=== PATIENT | male | born 1950 | race Caucasian/White ===

== ENCOUNTER 2020-06-22 12:33 | Observation (INO) | payer OTHER, BC ==
--- OUTSIDE RECORDS SUMMARY | 2020-06-22 12:35 | XMS REPORT | Summary of Care ---
:1950 Author Organization [facility] Address [address] [place] [address] Care Team Providers Name Role Phone Malcolm Ignacio MD Primary Care Provider Reason for Visit Reason Comments Refill Request Encounter Details Date Type Department Care Team Description 04/11/2020 Refill [facility] Family Medicine Malcolm Pimentel MD Refill Request - [address] [place] [address] [place] [address] [phone] Allergies No Known Allergiesdocumented as of this encounter (statuses as of 04/11/2020) Medications Medication Sig Dispensed Refills Start Date End Date Status blood sugar Use as directed 50 Strip 3 02/09/2017 A ctive diagnostic (ACCU-CHEK for once a day and KRISS) strip prn blood glucose monitoring for ICD code of E11.9 rosuvastatin 10 mg Take 1 tablet by 90 tablet 1 10/04/2019 Active tabletIndications: mouth at bedtime. Type 2 diabetes mellitus without complication, without long-term current use of insulin PARoxetine 20 mg Take 1 tablet by 90 tablet 0 01/23/2020 Active tabletIndications: mouth daily. Anxiety telmisartan 80 mg Take 1 tablet by 90 tablet 1 02/06/2020 Active tabletIndications: mouth daily. Essential hypertension SITagliptin 100 mg Take 1 tablet by 90 tablet 1 02/06/2020 Active tabletIndications: mouth daily. Type 2 diabetes mellitus without complication, without long-term current use of insulin, Polydipsia METFORMIN 1,000 mg TAKE 1 TABLET BY 180 tablet 0 04/04/2020 Active tabletIndications: MOUTH 2 TIMES Uncontrolled type 2 DAILY WITH MEALS. diabetes mellitus with hyperglycemia documented as of this encounter (statuses as of 04/11/2020) Active Problems Problem Noted Date Anxiety 09/26/2015 Essential hypertension 09/26/2015 Type 2 diabetes mellitus with microalbuminuria, withou t long-term current 09/26/2015 use of insulin documented as of this encounter (statuses as of 04/11/2020) Immunizations Name Administration Dates Next Due Influenza High Dose 02/22/2019 TDAP 01/05/2017 documented as of this encounter Social History Tobacco Use Types Packs/Day Years Used Date Never Smoker Smokeless Tobacco: Never Used Alcohol Use Drinks/Week oz/Week Comments Yes occasional Sex Assigned at Date Recorded Not on file documented as of this encounter Last Filed Vital Signs Not on filedocumented in this encounter Miscellaneous Notes Telephone Encounter - Reena Santoyo - 04/11/2020 4:44 PM CSTPARoxetine 20 mg tablet Patient called to request refill before leaving out of town. Please advise documented in this encounter Plan of Treatment Health Maintenance Due Date Last Done Comments HEPATITIS C (HCV) SCREEN 1950 Depression Screening 1962 COLON CANCER SCREENING FIT DNA EVERY 2001 3 YEARS COLON CANCER SCREENING SIGMOIDOSCOPY 2001 EVERY 5 YEARS COLONOSCOPY 2001 Zoster Recombinant Vaccine (SHINGRIX) 2001 (1 of 2) Medicare Wellness Visit 2016 PNEUMOCOCCAL VACCINES 65+ (1 of 1 - 2016 PPSV23) HgA1C 03/11/2019 09/09/2018, 01/06/2017 EYE EXAM 09/01/2019 08/31/2018 LDL-C 09/10/2019 09/09/2018, 01/06/2017 CREATININE (SERUM) 11/05/2019 11/04/2018, 09/09/2018, 01/06/2017 FOOT EXAM 11/05/2019 11/04/2018, 11/04/2018, 11/04/2018 URINE MICROALBUMIN 11/05/2019 11/04/2018 COLON CANCER SCREENING ANNUAL 11/12/2019 11/11/2018 FIT/FOBT Colorectal Cancer Screening 11/12/2019 INFLUENZA VACCINE (#1) 2020 02/22/2019 DTaP,Tdap,and Td Vaccines (2 - Td) 01/05/2027 01/05/2017 documented as of this encounter Results Not on filedocumented in this encounter Visit Diagnoses Diagnosis Anxiety Anxiety state, unspecified documented in this encounter Insurance Payer Benefit Plan Subscriber ID Effective Phone Address Typ e / Group Dates [facility] [id number] 2014-Enma [phone] [address] PPO/POS - OUT OF 87 [id number] [place] [address] MEDICARE MEDICARE PART [id number] 2016-Pres [phone] [address] X Medicare A ent 82 [id number] [place] [id number] documented as of this encounter
--- OUTSIDE RECORDS SUMMARY | 2020-06-22 12:35 | XMS REPORT | Summary of Care ---
:1950 Author Organization [facility] Address [address] [place] [address] Care Team Providers Name Role Phone Malcolm Ignacio MD Primary Care Provider Reason for Visit Reason Comments Refill Request Encounter Details Date Type Department Care Team Description 04/12/2020 Telephone [facility] Family Kailey Ignacio MD Refill Request [facility] - [address] [place] [address] [place] [address] [phone] Allergies No Known Allergiesdocumented as of this encounter (statuses as of 04/12/2020) Medications Medication Sig Dispensed Refills Start End Date Status Date blood sugar Use as directed 50 Strip 3 Ac tive diagnostic for once a day 7 (ACCU-CHEK KRISS) and prn blood strip glucose monitoring for ICD code of E11.9 rosuvastatin 10 mg Take 1 tablet 90 tablet 1 Active tabletIndications: by mouth at 0 Type 2 diabetes bedtime. mellitus without complication, without long-term current use of insulin telmisartan 80 mg Take 1 tablet 90 tablet 1 Active tabletIndications: by mouth daily. 0 Essential hypertension SITagliptin 100 mg Take 1 tablet 90 tablet 1 Active tabletIndications: by mouth daily. 0 Type 2 diabetes mellitus without complication, without long-term current use of insulin, Polydipsia METFORMIN 1,000 mg TAKE 1 TABLET 180 tablet 0 Active tabletIndications: BY MOUTH 2 0 Uncontrolled type TIMES DAILY 2 diabetes WITH MEALS. mellitus with hyperglycemia PARoxetine 20 mg Take 1 tablet 90 tablet 0 Active tabletIndications: by mouth daily. 0 Anxiety PARoxetine 20 mg Take 1 tablet 90 tablet 0 04/12/20 Discontinued tabletIndications: by mouth daily. 0 20 (Reorder) Anxiety documented as of this encounter (statuses as of 04/12/2020) Active Problems Problem Noted Date Anxiety 09/26/2015 Essential hypertension 09/26/2015 Type 2 diabetes mellitus with microalbuminuria, withou t long-term current 09/26/2015 use of insulin documented as of this encounter (statuses as of 04/12/2020) Immunizations Name Administration Dates Next Due Influenza [...] this encounter Miscellaneous Notes Telephone Encounter - Myriam Castro MA - 04/12/2020 8:20 AM CSTPt had telehealth appointment with on 02/06/2020. Refill okay to send. R RELATIONS MANAGER Telephone Encounter - Jesica Panchal - 04/12/2020 7:31 AM CSTPatient came into office regarding his refill on Paroxetine being denied. His last visit was with Dr. Ignacio in February and refills were discussed during visit. Patient is going out of town for 2 months. I did schedule appointment for Wednesday but patient said he should have refills since he was just seen Please advise R RELATIONS MANAGER documented in this encounter Plan of Treatment [...] Phone Address Typ e / Group Dates [facility] [id number] 2014-Enma [phone] [address] PPO/POS - OUT OF 87 [id number] [place] [address] MEDICARE MEDICARE PART [id number] 2016-Pres [phone] [address] X Medicare A ent 82 [id number] [place] [id number] documented as of this encounter
--- OUTSIDE RECORDS SUMMARY | 2020-06-22 12:35 | XMS REPORT | Summary of Care ---
:1950 Author Organization [facility] Address [address] [place] [address] Care Team Providers Name Role Phone Malcolm Ignacio MD Primary Care Provider Reason for Visit Reason Comments Refill Request Encounter Details Date Type Department Care Team Description 04/04/2020 Refill [facility] Family Medicine Malcolm Pimentel MD Refill Request - [address] [place] [address] [place] [address] [phone] Allergies No Known Allergiesdocumented as of this encounter (statuses as of 04/04/2020) Medications Medication Sig Dispensed Refills Start Date End Date Status blood sugar Use as directed 50 Strip 3 02/09/2017 A ctive diagnostic for once a day (ACCU-CHEK KRISS) and prn blood strip glucose monitoring for ICD code of E11.9 rosuvastatin 10 mg Take 1 tablet 90 tablet 1 10/04/2019 Active tabletIndications: by mouth at Type 2 diabetes bedtime. mellitus without complication, without long-term current use of insulin PARoxetine 20 mg Take 1 tablet 90 tablet 0 01/23/2020 Active tabletIndications: by mouth daily. Anxiety telmisartan 80 mg Take 1 tablet 90 tablet 1 02/06/2020 Active tabletIndications: by mouth daily. Essential hypertension SITagliptin 100 mg Take 1 tablet 90 tablet 1 02/06/2020 Active tabletIndications: by mouth daily. Type 2 diabetes mellitus without complication, without long-term current use of insulin, Polydipsia METFORMIN 1,000 mg TAKE 1 TABLET 180 tablet 0 04/04/2020 Active tabletIndications: BY MOUTH 2 Uncontrolled type 2 TIMES DAILY diabetes mellitus WITH MEALS. with hyperglycemia metFORMIN 1,000 mg Take 1 tablet 180 tablet 0 12/04/201904/04 Discontinued tabletIndications: by mouth 2 0 Uncontrolled type 2 (two) times diabetes mellitus daily with with hyperglycemia meals. documented as of this encounter (statuses as of 04/04/2020) Active Problems Problem Noted Date Anxiety 09/26/2015 Essential hypertension 09/26/2015 Type 2 diabetes mellitus with microalbuminuria, withou t long-term current 09/26/2015 use of insulin documented as of this encounter (statuses as of 04/04/2020) Immunizations Name Administration Dates Next Due Influenza High Dose 02/22/2019 TDAP 01/05/2017 documented as of this encounter Social History Tobacco Use Types Packs/Day Years Used Date Never Smoker Smokeless Tobacco: Never Used Alcohol Use Drinks/Week oz/Week Comments Yes occasional Sex Assigned at Date Recorded Not on file documented as of this encounter Last Filed Vital Signs Not on filedocumented in this encounter Plan of Treatment Health [...] filedocumented in this encounter Visit Diagnoses Diagnosis Uncontrolled type 2 diabetes mellitus wi th hyperglycemia documented in this encounter Insurance Payer Benefit Plan Subscriber ID Effective Phone Address Typ e / Group Dates [facility] [id number] 2014-Prese [phone] [address] PPO/POS - OUT OF 87 [id number] [place] [address] MEDICARE MEDICARE PART [id number] 2016-Pres [phone] [address] X Medicare A ent 82 [id number] [place] [phone] documented as of this encounter
--- OUTSIDE RECORDS SUMMARY | 2020-06-22 12:36 | XMS REPORT | Summary of Care ---
:1950 Author Organization [facility] Address [address] [place] [address] Care Team Providers Name Role Phone Malcolm Ignacio MD Primary Care Provider Reason for Visit Reason Comments Assessment Refill Request Encounter Details Date Type Department Care Team Description 06/17/2020 Refill [facility] Family Kailey Ignacio MD Assessment; Refill Medicine - [address] Request [address] [place] [address] [place] [phone] Allergies No Known Allergiesdocumented as of this encounter (statuses as of 06/18/2020) Medications Medication Sig Dispensed Refills Start End Date Status Date blood sugar Use as directed 50 Strip 3 Ac tive diagnostic for once a day 7 (ACCU-CHEK KRISS) and prn blood strip glucose monitoring for ICD code of E11.9 telmisartan 80 mg Take 1 tablet 90 [...] Active tabletIndications: by mouth daily. 0 Anxiety rosuvastatin 10 mg Take 1 tablet 90 tablet 0 Active tabletIndications: by mouth at 1 Type 2 diabetes bedtime. mellitus without complication, without long-term current use of insulin rosuvastatin 10 mg Take 1 tablet 90 tablet 1 0 Discontinued tabletIndications: by mouth at 0 21 (Reorder) Type 2 diabetes bedtime. mellitus without complication, without long-term current use of insulin documented as of this encounter (statuses as of 06/18/2020) Active Problems Problem Noted Date Anxiety 09/26/2015 Essential hypertension 09/26/2015 Type 2 diabetes mellitus with microalbuminuria, withou t long-term current 09/26/2015 use of insulin documented as of this encounter (statuses as of 06/18/2020) Immunizations Name Administration Dates Next Due Influenza [...] this encounter Miscellaneous Notes Telephone Encounter - Jose Angel Castillo - 06/17/2020 10:46 AM CSTPatient is also requesting medication for Covid per patient he is currently positive.Please advise E MAKER documented in this encounter Plan of Treatment [...] filedocumented in this encounter Visit Diagnoses Diagnosis Type 2 diabetes mellitus without complic ation, without long-term current use of insulin documented in this encounter Insurance Payer Benefit Plan Subscriber ID Effective Phone Address Typ e / Group Dates [facility] [id number] 2014-Prese [phone] [address] PPO/POS - OUT OF 87 [id number] [place] [address] MEDICARE MEDICARE PART [id number] 2016-Pres [phone] [address] X Medicare A ent 82 [id number] [place] [id number] documented as of this encounter
--- OUTSIDE RECORDS SUMMARY | 2020-06-22 12:36 | XMS REPORT | Continuity of Care Document ---
:1950 Author Organization [facility] t Address [address] [place] [address] Care Team Providers Name Role Phone Mateus RUBIO Attending Clinician Cruz RUBIO, N Attending Clinician Problems This patient has no known problems. Allergies, Adverse Reactions, Alerts This patient has no known allergies or adverse reactions. Medications This patient has no known medications. Procedures This patient has no known procedures. Encounters Start End Encounter Admission Attending Care Care Encounter Source Date/Time Date/Time Type Type Clinicians Facility Department ID 2020-06-17 2020-06-[address] [facility] [id number] 00:00:00 00:00:00 [facility] [id number] [place] [id number] Professio [phone] nal [facility] Office Building One 2020-06-14 2020-06-14 Telephone [facility]ly [facility] [id number] 00:00:00 00:00:00 [facility] [id number] [place] [id number] Professio [phone] nal 044 Office Building One 2020-06-12 2020-06-12 [facility] [id number] 00:00:00 00:00:00 Malcolm [place] [facility] [id number] [place] [id number] Professio [phone] [place] [address] Office [address] One 2020-04-12 2020-04-[address] [facility] [id number] 00:00:00 00:00:00 [facility] [id number] [place] [id number] Professio [phone] [place] [address] Office [address] One 2020-04-11 2020-04-11 [facility] [id number] 00:00:00 00:00:00 [facility] [id number] [place] [id number] Professio [phone] [place] [address] Office [address] One 2020-04-04 2020-04-04 [facility] [id number] 00:00:00 00:00:00 [facility] [id number] [place] [id number] Professio [phone] [place] [address] Office [address] One 2020-02-06 2020-02-06 [facility] [id number] 06:51:51 07:06:51 ne Visit [facility] [id number] [place] [id number] Professio [phone] [place] [address] Office [address] One 2020-01-22 2020-01-22 [facility] [id number] 00:00:00 00:00:00 [facility] [id number] [place] [id number] Professio [phone] [place] [address] Office Building One 2019-12-04 2019-12-04 Telephone Cruz [facility] [id number] 00:00:00 00:00:00 Juli Okeefe [id number] Pediatric [id number] Clinic [phone] 225 2019-12-04 2019-12-04 [facility] [id number] 00:00:00 00:00:00 [facility] [id number] [place] [id number] Professio [phone] [place] [address] Office Building One 2019-11-20 2019-11-20 Gio Ignacio [facility] [id number] 00:00:00 00:00:00 Malcolm Connolly [id number] [place] [id number] Professio [phone] [facility] 044 Building 2019-10-04 2019-10-04 Gio Ignacio [facility] [id number] 00:00:00 00:00:00 [facility] [id number] [place] [id number] Professio [phone] [place] [address] Office Building One 2019-07-14 2019-07-14 Corrie Ignacio [facility] [id number] 00:00:00 00:00:00 [facility] [id number] [place] [id number] Professio [phone] [place] [address] Office Building One 2019-02-03 2019-02-03 Gio Ignacio [facility] [id number] 00:00:00 00:00:00 [facility] [id number] [place] [id number] Professio [phone] [place] [address] Office Building One 2019-01-03 2019-01-03 Corrie Ignacio [facility] [id number] 00:00:00 00:00:00 Malcolm Connolly [id number] [place] [id number] Professio [phone] [place] [address] Building 2018-12-27 2018-12-27 Gio Ignacio [place] [id number] 00:00:00 00:00:00 [facility] [id number] [place] [id number] Professio [phone] [place] [address] Office Building One Results This patient has no known results.
--- OUTSIDE RECORDS SUMMARY | 2020-06-22 12:36 | XMS REPORT | Summary of Care ---
:1950 Author Organization [facility] Address [address] [place] [address] Care Team Providers Name Role Phone Malcolm Ignacio MD Primary Care Provider Reason for Visit Reason Comments Assessment Encounter Details Date Type Department Care Team Description 06/14/2020 Telephone [facility] Family Medicine Malcolm Pimentel MD Assessment - [address] [place] [address] [place] [address] [phone] Allergies No Known Allergiesdocumented as of this encounter (statuses as of 06/14/2020) Medications Medication Sig Dispensed Refills Start Date [...] insulin telmisartan 80 mg Take 1 tablet by [...] DAILY WITH MEALS. diabetes mellitus with hyperglycemia PARoxetine 20 mg Take 1 tablet by 90 tablet 0 04/12/2020 Active tabletIndications: mouth daily. Anxiety documented as of this encounter (statuses as of 06/14/2020) Active Problems Problem Noted Date Anxiety 09/26/2015 Essential hypertension 09/26/2015 Type 2 diabetes mellitus with microalbuminuria, withou t long-term current 09/26/2015 use of insulin documented as of this encounter (statuses as of 06/14/2020) Immunizations Name Administration Dates Next Due Influenza [...] this encounter Miscellaneous Notes Telephone Encounter - Susi Jane LVN - 06/14/2020 3:22 PM CSTI called the patient back and explained that we can advise OTC medication to treat any symptoms he is having but there are no other medications that Dr Ignacio prescribes. I also gave ER precautions andadvise should he worsen. Advised to use OTC RObitussin DM for any cough and Tylenol for any fever orbody aches. He verballized understanding. elephone Encounter - Leonora Calvert - 06/14/2020 2:[address] PM CSTPatient is aware Dr. Ignacio is not in clinic today but is needing a nurse to call back regarding hispositive diagnosis. Please advise. elephone Encounter - Anastasiya Reyes - 06/14/2020 12:28 PM CSTPatient is calling he tested positive for Covid and wants to know if Dr Ignacio will be prescribing him any medication. He is a little upset that he called a couple days ago to get advise and nobody has returned his call. Please call and advise thanks. documented in this encounter Plan of Treatment [...] Results Not on filedocumented in this encounter Insurance Payer Benefit Plan Subscriber ID Effective Phone Address Typ e / Group Dates [facility] [id number] 2014-Enma [phone] [address] PPO/POS - OUT OF nt [id number] [place] [address] MEDICARE MEDICARE PART [id number] 2016-Pres [phone] [address] X Medicare A ent 82 [id number] [place] [phone] documented as of this encounter
--- OUTSIDE RECORDS SUMMARY | 2020-06-22 12:36 | XMS REPORT | Summary of Care ---
:1950 Author Organization [facility] Address [address] [place] [address] Care Team Providers Name Role Phone Malcolm Ignacio MD Primary Care Provider Reason for Visit Reason Comments Assessment Encounter Details Date Type Department Care Team Description 06/12/2020 Telephone [facility] Family Medicine Malcolm Pimentel MD Assessment - [address] [place] [address] [place] [address] [phone] Allergies No Known Allergiesdocumented as of this encounter (statuses as of 06/12/2020) Medications Medication Sig Dispensed Refills Start Date [...] as of this encounter (statuses as of 06/12/2020) Active Problems Problem Noted Date Anxiety 09/26/2015 Essential hypertension 09/26/2015 Type 2 diabetes mellitus with microalbuminuria, withou t long-term current 09/26/2015 use of insulin documented as of this encounter (statuses as of 06/12/2020) Immunizations Name Administration Dates Next Due Influenza [...] this encounter Miscellaneous Notes Telephone Encounter - Malcolm Ignacio MD - 06/12/2020 10:50 AM CSTHe can quarantine and moniter symptoms, or get the covid test around Wednesday elephone Encounter - Anastasiya Reyes - 06/12/2020 10:14 AM CSTPatient is calling he was around a family member this past weekend -Wed, family member is now in the hospital with covid. Patient wants to know how long he has to wait or when he needs to get tested? Please call and advise thanks. documented in [...] Phone Address Typ e / Group Dates [facility] [id number] 2014-Prese [phone] [address] PPO/POS - OUT OF 87 [id number] [place] [address] MEDICARE MEDICARE PART [id number] 2016-Pres [phone] [address] X Medicare A ent 82 [id number] [place] [id number] documented as of this encounter
[2020-06-22] MEDS ORDERED: METHYLPREDNISOLONE 125 MG INJ ONE (13:32)
[2020-06-22] MEDS ORDERED: NA CHLORIDE 0.9% 1,000 ML ONE ×2 (13:32→14:59)
[2020-06-22 13:48] LABS: Absolute Lymphocytes (CBC) 0.9 K/uL (0.7-4.9); Basophils % 0.2 % (0-1.3); Hematocrit 38.4 % (39.6-49.0); Lymphocytes % 14.1 % (15.3-44.8); MPV 8.4 fL (7.6-11.3)
[2020-06-22 13:52] LABS: Protime INR 1.13
[2020-06-22 14:11] LABS: ALT/SGPT 25 U/L (12-78); AST/SGOT 23 U/L (15-37); Albumin 3.4 g/dL (3.4-5.0); Alkaline Phosphatase 55 U/L (45-117); BUN Blood Urea Nitrogen 22 mg/dL (7-18); Bicarbonate 26 mmol/L (21-32); Bilirubin Direct 0.2 mg/dL (0-0.2); Bilirubin Total 0.6 mg/dL (0.2-1.0); CKMB Creatine Kinase MB < 1.0 ng/mL (0.3-3.6); Creatine Phosphokinase 110 U/L (39-308); Glucose Level 204 mg/dL (74-106); Lipase 349 U/L (73-393); Magnesium 1.7 mg/dL (1.8-2.4); NT PRO-BNP 116 pg/mL (<125); Potassium 4.2 mmol/L (3.5-5.1); Protein, Total 7.6 g/dL (6.4-8.2); Sodium Level 133 mmol/L (136-145); Troponin (Emerg Dept Use Only) < 0.02 ng/mL (0.0-0.045)
--- NOTE | 2020-06-22 14:21 | ER ---
Nurse's Notes [facility] Name: Jorje Kearns Age: 70 yrs Sex: Male : 1950 Arrival Date: 06/22/2020 Time: 12:38 Bed 8 Private MD: Eleno Hernández C Diagnosis: Coronavirus infection, unspecified;Pneumonia due to other specified infectious organisms;Hypoxemia Presentation: 06/22 12:55 Chief complaint: Patient states: COVID + confirmed on 06/14/20 but symptoms started 1 sv week prior. Pt c/o intermittent fever and O2 sat at 92% with no exertion and has had no appetite. Is concerned about not eating beause he is diabetic. Dr Hernández had already started him on Ivermectin and a Zpack. Pt took Tylenol this morning. Coronavirus screen: Client denies travel out of the [place] in the last 14 days. Client presents with at least one sign or symptom that may indicate coronavirus-19. Standard/surgical mask placed on the client. Provider contacted for isolation considerations. Client reports previous positive COVID test result. Date of collection: June 14, 2020 Staff notified of need for isolation. Ebola Screen: No symptoms or risks identified at this time. Initial Sepsis Screen: Does the patient meet any 2 criteria? HR > 90 bpm. No. Patient's initial sepsis screen is negative. Does the patient have a suspected source of infection? Yes: Other: COVID. Risk Assessment: Do you want to hurt yourself or someone else? Patient reports no desire to harm self or others. Onset of symptoms was June 07, 2020. 12:55 Method Of Arrival: Ambulatory sv 12:55 Acuity: WILMA 3 sv Triage Assessment: 13:01 General: Appears in no apparent distress. comfortable, well groomed, well developed, sv Behavior is calm, cooperative, appropriate for age. General: Reports fever for intermittent for 2 weeks. Pain: Denies pain. Neuro: Level of Consciousness is awake, alert, obeys commands, Oriented to person, place, time, situation, Moves all extremities. Full function Gait is steady, Speech is normal. Respiratory: Airway is patent Respiratory effort is even, unlabored, Respiratory pattern is regular, symmetrical. Derm: Skin is intact, Skin is pink, warm \T\ dry. Historical: - Allergies: 13:01 No Known Allergies; sv - Home Meds: 13:01 Januvia 100 mg oral tab 1 tab once daily [Active]; metformin 1,000 mg Oral tab 1 tab 2 sv times per day [Active]; rosuvastatin 10 mg oral tab 1 tab nightly [Active]; telmisartan 80 mg oral tab 1 tab once daily [Active]; Paxil 20 mg Oral tab 1 tab once daily [Active]; aspirin 81 mg Oral TbEC 1 tab once daily [Active]; - PMHx: 13:01 Diabetes - NIDDM; Hypertension; High Cholesterol; sv - PSHx: 13:01 Back; sv - Immunization history:: Adult Immunizations up to date. - Social history:: Smoking status: Patient denies any tobacco usage or history of. Patient uses alcohol, but reports only rare drinking. - Family history:: not pertinent. Screenin:01 Abuse screen: Denies threats or abuse. Denies injuries from another. Nutritional sv screening: No deficits noted. Tuberculosis screening: No symptoms or risk factors identified. Fall Risk None identified. Assessment: 13:35 Reassessment: Patient appears in no apparent distress at this time. No changes from sv previously documented assessment. See triage assessment. 14:48 Reassessment: Patient appears in no apparent distress at this time. No changes from sv previously documented assessment. Patient and/or family updated on plan of care and expected duration. Pain level reassessed. Patient is alert, oriented x 3, equal unlabored respirations, skin warm/dry/pink. 15:22 Reassessment: Left voicemail for Dr Hernández to get admission orders. sv 15:45 Reassessment: Patient appears in no apparent distress at this time. No changes from sv previously documented assessment. Patient and/or family updated on plan of care and expected duration. Pain level reassessed. Patient is alert, oriented x 3, equal unlabored respirations, skin warm/dry/pink. Vital Signs: 12:55 BP 137 / 84; Pulse 102; Resp 20; Temp 98.5(O); Pulse Ox 96% on R/A; Weight 105.23 kg; sv Height 6 ft. 2 in. (187.96 cm); Pain 0/10; 13:00 BP 107 / 84; Pulse 91; Resp 25; Pulse Ox 95% on R/A; hb 14:00 BP 132 / 64; Pulse 89; Resp 25; Pulse Ox 96% on R/A; hb 12:55 Body Mass Index 29.79 (105.23 kg, 187.96 cm) sv ED Course: 12:38 Patient arrived in ED. mr 12:38 Eleno Hernández MD is Private Physician. mr 12:43 Jayde Porter, SACHIN is Primary Nurse. sv 12:47 Betsy Carter MD is Attending Physician. ma2 12:59 Triage completed. sv 12:59 Arm band placed on Patient placed in an exam room, on a stretcher. sv 13:01 Patient has correct armband on for positive identification. Placed in gown. Bed in low sv position. Call light in reach. Side rails up X 1. Pulse ox on. NIBP on. Door closed. Head of bed elevated. 13:02 Awaiting ED provider evaluation. sv 13:24 EKG done, by ED staff, reviewed by Betsy Carter MD. sv 13:26 Inserted saline lock: 20 gauge in right antecubital area, using aseptic technique. hb Blood collected. 13:35 X-ray(s) taken. sv 13:36 Lactate Sent. sv 13:44 XRAY CXR (1 view) In Process Unspecified. EDMS 14:20 Eleno Hernández MD is Hospitalizing Provider. ma2 15:01 No provider procedures requiring assistance completed. Patient admitted, IV remains in sv place. intact. 15:02 Awaiting bed assignment, Awaiting: and admission orders from Dr Hernández. sv Administered Medications: 13:32 Drug: SOLU-Medrol 125 mg Route: IVP; Site: right antecubital; hb 13:36 Follow up: Response: No adverse reaction sv 13:32 Drug: NS 0.9% 1000 ml Route: IV; Rate: 1 bolus; Site: right antecubital; hb 14:48 Follow up: Response: No adverse reaction; IV Status: Completed infusion; IV Intake: sv 1000ml 14:48 Drug: NS 0.9% 1000 ml Route: IV; Rate: 100 ml/hr; Site: right antecubital; sv 16:29 Follow up: Response: No adverse reaction; IV Status: Infusion continued upon admission sv Intake: 14:48 IV: 1000ml; Total: 1000ml. sv Outcome: 14:21 Decision to Hospitalize by Provider. ma2 15:45 Admitted to ER Hold. Please see [facility] for further documentation. sv 15:45 Condition: stable 15:45 Instructed on the need for admit. 16:29 Patient left the ED. sv Signatures: Dispatcher [employer] Jayde Tobar RN RN sv Rivera, Mary mr PerezOpal RN RN hb Alzahri, Mohammad, MD MD ma2 Corrections: (The following items were deleted from the chart) 15:02 13:00 BP 107 / 84; Pulse 23bpm; Resp 3bpm; Pulse Ox 95% RA; hb hb
--- NOTE | 2020-06-22 14:21 | EDPHYS ---
Physician Documentation [facility] Name: Jorje Kearns Age: 70 yrs Sex: Male : 1950 Arrival Date: 06/22/2020 Time: 12:38 Bed 8 Private MD: Eleno France C ED Physician Betsy Carter HPI: 06/22 13:25 This 70 yrs old Male presents to ER via Ambulatory with complaints of COVID+, ma2 Fever. 13:25 Onset: The symptoms/episode began/occurred gradually, 1 week(s) ago. Associated signs ma2 and symptoms: Pertinent positives: cough, Pertinent negatives: abdominal pain, arthralgias, backache. Severity of symptoms: At their worst the symptoms were moderate in the emergency department the symptoms are unchanged. The patient has not experienced similar symptoms in the past. Historical: - Allergies: 13:01 No Known Allergies; sv - Home Meds: 13:01 Januvia 100 mg oral tab 1 tab once daily [Active]; metformin 1,000 mg Oral tab 1 tab 2 sv times per day [Active]; rosuvastatin 10 mg oral tab 1 tab nightly [Active]; telmisartan 80 mg oral tab 1 tab once daily [Active]; Paxil 20 mg Oral tab 1 tab once daily [Active]; aspirin 81 mg Oral TbEC 1 tab once daily [Active]; - PMHx: 13:01 Diabetes - NIDDM; Hypertension; High Cholesterol; sv - PSHx: 13:01 Back; sv - Immunization history:: Adult Immunizations up to date. - Social history:: Smoking status: Patient denies any tobacco usage or history of. Patient uses alcohol, but reports only rare drinking. - Family history:: not pertinent. ROS: 13:25 Constitutional: Negative for fever, chills, and weight loss. ma2 13:25 All other systems are negative. Exam: 13:25 Constitutional: This is a well developed, well nourished patient who is awake, alert, ma2 and in no acute distress. Head/Face: Normocephalic, atraumatic. Eyes: Pupils equal round and reactive to light, extra-ocular motions intact. Lids and lashes normal. Conjunctiva and sclera are non-icteric and not injected. Cornea within normal limits. Periorbital areas with no swelling, redness, or edema. ENT: Nares patent. No nasal discharge, no septal abnormalities noted. Tympanic membranes are normal and external auditory canals are clear. Oropharynx with no redness, swelling, or masses, exudates, or evidence of obstruction, uvula midline. Mucous membranes moist. Neck: Trachea midline, no thyromegaly or masses palpated, and no cervical lymphadenopathy. Supple, full range of motion without nuchal rigidity, or vertebral point tenderness. No Meningismus. Chest/axilla: Normal chest wall appearance and motion. Nontender with no deformity. No lesions are appreciated. Cardiovascular: Regular rate and rhythm with a normal S1 and S2. No gallops, murmurs, or rubs. Normal PMI, no JVD. No pulse deficits. Respiratory: Lungs have equal breath sounds bilaterally, clear to auscultation and percussion. No rales, rhonchi or wheezes noted. No increased work of breathing, no retractions or nasal flaring. Abdomen/GI: Soft, non-tender, with normal bowel sounds. No distension or tympany. No guarding or rebound. No evidence of tenderness throughout. Skin: Warm, dry with normal turgor. Normal color with no rashes, no lesions, and no evidence of cellulitis. MS/ Extremity: Pulses equal, no cyanosis. Neurovascular intact. Full, normal range of motion. Neuro: Awake and alert, GCS 15, oriented to person, place, time, and situation. Cranial nerves II-XII grossly intact. Motor strength 5/5 in all extremities. Sensory grossly intact. Cerebellar exam normal. Normal gait. Vital Signs: 12:55 BP 137 / 84; Pulse 102; Resp 20; Temp 98.5(O); Pulse Ox 96% on R/A; Weight 105.23 kg; sv Height 6 ft. 2 in. (187.96 cm); Pain 0/10; 13:00 BP 107 / 84; Pulse 91; Resp 25; Pulse Ox 95% on R/A; hb 14:00 BP 132 / 64; Pulse 89; Resp 25; Pulse Ox 96% on R/A; hb 12:55 Body Mass Index 29.79 (105.23 kg, 187.96 cm) sv MDM: 12:47 Patient medically screened. ma2 13:25 Differential diagnosis: URI, bronchitis, pneumonia UTI, gastroenteritis. Data reviewed: [facility] vital signs, nurses notes. Counseling: I had a detailed discussion with the patient and/or guardian regarding: the historical points, exam findings, and any diagnostic results supporting the discharge/admit diagnosis, the presence of at least one elevated blood pressure reading (>120/80) during this emergency department visit, the need for outpatient follow up. Response to treatment: the patient's symptoms have markedly improved after treatment. ED course: patient has z-pack and ivermectin at home . 14:19 ED course: discussed with dr. france, he advised for admission . 06/22 13:13 Order name: Blood Culture Adult (2) 06/22 13:13 Order name: BMP; Complete Time: 14:18 06/22 13:13 Order name: CBC with Diff; Complete Time: 13:56 06/22 13:13 Order name: Ckmb; Complete Time: 14:18 06/22 13:13 Order name: CPK; Complete Time: 14:18 06/22 13:13 Order name: Hepatic Function; Complete Time: 14:18 06/22 13:13 Order name: Lipase; Complete Time: 14:18 06/22 13:13 Order name: Magnesium; Complete Time: 14:18 06/22 13:13 Order name: NT PRO-BNP; Complete Time: 14:18 06/22 13:13 Order name: PT-INR; Complete Time: 13:56 06/22 13:13 Order name: Ptt, Activated; Complete Time: 13:56 06/22 13:13 Order name: Troponin (emerg Dept Use Only); Complete Time: 14:18 06/22 13:16 Order name: Lactate 06/22 13:16 Order name: Procalcitonin 06/22 13:13 Order name: XRAY CXR (1 view) 06/22 13:13 Order name: EKG; Complete Time: 13:14 06/22 13:13 Order name: Cardiac monitoring; Complete Time: 13:32 06/22 13:13 Order name: EKG - Nurse/Tech; Complete Time: 13:32 06/22 13:13 Order name: IV Saline Lock; Complete Time: 13:32 [facility] 06/22 13:13 Order name: Labs collected and sent; Complete Time: :33 [facility] 06/22 13:13 Order name: O2 Per Protocol; Complete Time: :33 [facility] 06/22 13:13 Order name: O2 Sat Monitoring; Complete Time: :33 [facility] 06/22 13:16 Order name: Lactate; Complete Time: 14:18 EDMS Administered Medications: 13:32 Drug: SOLU-Medrol 125 mg Route: IVP; Site: right antecubital; hb 13:36 Follow up: Response: No adverse reaction sv 13:32 Drug: NS 0.9% 1000 ml Route: IV; Rate: 1 bolus; Site: right antecubital; hb 14:48 Follow up: Response: No adverse reaction; IV Status: Completed infusion; IV Intake: sv 1000ml 14:48 Drug: NS 0.9% 1000 ml Route: IV; Rate: 100 ml/hr; Site: right antecubital; sv 16:29 Follow up: Response: No adverse reaction; IV Status: Infusion continued upon admission sv Disposition: 06/22/20 14:21 Hospitalization ordered by Eelno France for Inpatient Admission. Preliminary diagnosis are Coronavirus infection, unspecified, Pneumonia due to other specified infectious organisms, Hypoxemia. - Bed requested for Telemetry/MedSurg (Inpatient). - Status is Inpatient Admission. sv - Condition is Stable. - Problem is new. - Symptoms are unchanged. Signatures: Dispatcher [employer] EDMS Kelly Okeefe, LABORER PIPELINES-C LAB[employer]ER [employer]ES-Jayde Luna RN RN sv Woody, Diana, RN RN dw Baxter, Heather, RN RN hb Alzahri, Mohammad, MD MD [facility] Jesica Walters Corrections: (The following items were deleted from the chart) 14:58 14:21 Hospitalization Ordered by A Edgar RUBIO for Inpatient Admission. Preliminary eb diagnosis is Coronavirus infection, unspecified; Pneumonia due to other specified infectious organisms; Hypoxemia. Bed requested for Telemetry/MedSurg (Inpatient). Status is Inpatient Admission. Condition is Stable. Problem is new. Symptoms are unchanged. [facility] 16:02 14:58 06/22/2020 14:21 Hospitalization Ordered by A Edgar RUBIO for Inpatient Admission. [email or web address] Preliminary diagnosis is Coronavirus infection, unspecified; Pneumonia due to other specified infectious organisms; Hypoxemia. Bed requested for [facility] ER HOLD. Status is Inpatient Admission. Condition is Stable. Problem is new. Symptoms are unchanged. eb 16:29 16:02 06/22/2020 14:21 Hospitalization Ordered by A Edgar RUBIO for Inpatient Admission. sv Preliminary diagnosis is Coronavirus infection, unspecified; Pneumonia due to other specified infectious organisms; Hypoxemia. Bed requested for Telemetry/MedSurg (Inpatient). Status is Inpatient Admission. Condition is Stable. Problem is new. Symptoms are unchanged. dw
--- NOTE | 2020-06-22 14:27 | RAD REPORT ---
EXAM DESCRIPTION: RAD - Chest Single View - 06/22/2020 1:44 pm CLINICAL HISTORY: CONGESTION, COVID positive COMPARISON: None TECHNIQUE: AP portable chest image was obtained 06/22/2020 1:44 pm . FINDINGS: Lung volumes are low which accentuates interstitial opacification. No extensive alveolar o pacification pattern identifiable. There could be a few mild areas of airspace opacification masked b y the exam limitations. Heart and vasculature are normal. No measurable pleural effusion and no pneum othorax. No acute bony abnormality seen. No acute aortic findings suspected. IMPRESSION: Limited shallow inspiration examination showing no focal mass or consolidation. No extensive pneumonia pattern is identifiable. Mild disease could be masked by the exam limitations. CT chest imaging could be performed if it would alter medical management.
[2020-06-22] MEDS ORDERED: ACETAMINOPHEN 500 MG TAB PO PRN (15:36)
[2020-06-22 15:55] VITALS: BMI 29.7
[2020-06-22] MEDS ORDERED: D50W 25 GM/50 ML SYRINGE IV PRN (16:00)
[2020-06-22] MEDS ORDERED: GLUCAGON 1 MG/VIAL IM PRN (16:00)
[2020-06-22] MEDS ORDERED: THIAMINE 200 MG/2 ML INJ IVP ONE (16:01)
[2020-06-22] MEDS ORDERED: MAGNESIUM SULFATE 1 gm IVPB 1 GM/100 ML BAG IV ONE (16:33)
[2020-06-22] MEDS: INSULIN -REGULAR HUMAN 50 UNIT/0.5 ML ML SQ SCH ×2 (17:06→21:06)
[2020-06-22 19:16] LABS: Ferritin 362.3 ng/mL (26-388)
[2020-06-22] MEDS ORDERED: ROSUVASTATIN 10 MG TAB PO SCH (21:00)
[2020-06-22] MEDS ORDERED: INSULIN GLARGINE 100 UNITS/ML SQ SCH (21:00)
[2020-06-22] MEDS: ENOXAPARIN 100 MG/ML SYR SQ SCH (21:05)
[2020-06-22] MEDS: METHYLPREDNISOLONE 125 MG INJ IV SCH (21:06)
[2020-06-23] MEDS: METHYLPREDNISOLONE 125 MG INJ IV SCH ×2 (00:23→08:28)
[2020-06-23 05:58] LABS: Absolute Lymphocytes (CBC) 0.6 K/uL (0.7-4.9); Basophils % 0.1 % (0-1.3); Hematocrit 38.2 % (39.6-49.0); MPV 8.6 fL (7.6-11.3); RBC Red Blood Cell Count 4.76 M/uL (4.33-5.43)
[2020-06-23 06:37] LABS: C-Reactive Protein 98.6 mg/L (<3.00); Ferritin 400.3 ng/mL (26-388); Magnesium 2.4 mg/dL (1.8-2.4); Potassium 4.6 mmol/L (3.5-5.1)
[2020-06-23] MEDS ORDERED: INSULIN GLARGINE 100 UNITS/ML SQ SCH (08:00)
[2020-06-23] MEDS: INSULIN -REGULAR HUMAN 50 UNIT/0.5 ML ML SQ SCH ×2 (08:26→11:20)
[2020-06-23] MEDS: ENOXAPARIN 100 MG/ML SYR SQ SCH (08:27)
[2020-06-23] MEDS ORDERED: ASCORBIC ACID 500 MG TABLET PO SCH (09:00)
[2020-06-23] MEDS ORDERED: ZINC SULFATE 220 MG CAP PO SCH (09:00)
[2020-06-23] MEDS ORDERED: VALSARTAN 160 MG TAB PO SCH (09:00)
[2020-06-23] MEDS ORDERED: VITAMIN D 5,000 UNIT CAP PO SCH (09:00)
[2020-06-23] MEDS ORDERED: PARoxetine HCL 10 MG TAB PO SCH (09:00)
[2020-06-23] MEDS ORDERED: THIAMINE 200 MG/2 ML INJ IVP SCH (09:00)
[2020-06-23] MEDS ORDERED: SITAGLIPTIN PHOS 100 MG TAB PO SCH (09:00)
[2020-06-23 09:19] VITALS: O2SAT 92
[2020-06-23] MEDS ORDERED: D50W 25 GM/50 ML VIAL IV PRN (10:00)
--- NOTE | 2020-06-23 10:55 | RAD REPORT ---
EXAM DESCRIPTION: CT - Thorax Wo Con - 06/23/2020 10:42 am CLINICAL HISTORY: sob COMPARISON: June 22, 2020 chest x-ray TECHNIQUE: Computed axial tomography of the chest was obtained. Contrast was not requested. All CT scans are performed using dose optimization technique as appropriate and may include automated exposure control or mA/KV adjustment according to patient size. FINDINGS: The evaluation of mediastinum, omi and vessels is limited secondary to lack of IV contras t administration. Mild bilateral ground-glass opacities within the lungs No mediastinal or hilar lymphadenopathy is seen. A pleural effusion is not present. No pericardial effusion. Coronary arterial calcifications 29 millimeter right thyroid nodule IMPRESSION: Mild bilateral ground-glass opacities within the lungs likely Covid pneumonia 29 millimeter right thyroid nodule. Nonemergent thyroid ultrasound recommended
--- NOTE | 2020-06-23 12:41 | SS ---
Date of Admission: 06/23/2020 Date of Discharge: 06/23/2020 Chief Complaint: Feeling weak and sleepy. History Of Present Illness: This is a 70-year-old very pleasant male patient, who was evaluated a few days ago via tele visit for initial visit. This tele visit was done on an urgent basis as I was talking to the patient's , who is suffering from COVID-19 infection and she requested me to help her who is also having same problem as he was not getting any medications or prescriptions from his previous physician and they were ready to change physician and wanted me to take over his care. So, when I talked to him a few days ago, he reported that he started to have cough which is about 12-13 days ago and he had his COVID-19 test done on June 14, which came back positive. He started to have fever with fatigue feeling about 3 to 4 days ago. The patient reported his home oxygen saturation 95%. He was prescribed Z-Doug and ivermectin and was given instruction if he starts to have any shortness of breath feeling or chest congestion type of feeling then to let me know and I will start him on some steroid medications. Yesterday, he was brought into emergency room because he has been having very poor appetite and is very weak and sleepy, so he was brought into ER with concerns about dehydration. After he was evaluated, he was admitted to the hospital with this problem. The patient has received IV fluid since he came into the hospital and this morning he feels a lot better. The patient says that last night and this morning he ate lot better than what he has done in last 10 days and he feels a lot better, has no other complaints this morning. The patient has not required any oxygen supplementation and he is maintaining adequate oxygenation with saturation around 94% to 96% on room air since he has been in the hospital. Allergies: No known allergies. Review of Systems: Constitutional: As mentioned above. All other systems reviewed and negative. Medications: Metformin 1000 mg 2 times a day, telmisartan 80 mg daily, paroxetine 20 mg daily, rosuvastatin 10 mg at bedtime, Januvia 100 mg daily, aspirin 81 mg daily. Past Medical History: Significant for hypertension, hyperlipidemia, type 2 diabetes mellitus, and depression. Social History: Negative for smoking. Use of alcohol, rarely uses beer. Past Surgical History: Back surgery in 2014 and appendectomy. Family History: Mother; hypertension, bladder cancer, uterine cancer and cancer of duodenum. Father , had coronary artery disease, atrial fibrillation, and prostate cancer. Brother has heart disease. Physical Examination: Vital Signs: When he was admitted; his height 6 feet 2 inches, weight 231 pounds. Temperature 97, respiratory rate 24, blood pressure 135/82, oxygen saturation 95% on room air. General: Awake, alert, oriented, not in distress. HEENT: Head atraumatic, normocephalic. Conjunctivae nonerythematous. Sclerae white. Mouth, no thrush or edema noted. Ears/Nose, no mass, lesion, discharge noted. Neck: Supple. No JVD, lymph nodes, bruit, thyromegaly noted. Lungs: Bilateral good equal air entry. Clear to auscultation. No rhonchi. No rales. Heart: Normal heart sounds, no murmur or gallop. Abdomen: Soft, bowel sounds normal. No guarding, rigidity, tenderness, mass, hepatosplenomegaly, distention, or bruit noted. Extremities: No leg edema. No calf tenderness. Skin: No rash, ulcer, cellulitis. Lymphatics: No lymph node enlargement in neck, supraclavicular, infraclavicular region. Neuro: No focal neurological deficit. Chest: Unremarkable. External Genitalia: Deferred. Rectal: Deferred. Laboratory Data: Yesterday; white count 6.6, hemoglobin 12.6, platelets 129. This morning; white count 4.6, hemoglobin 12.8, platelets 140. INR 1.13. Yesterday; sodium 133, potassium 4.2, chloride 101, bicarb 26, BUN 22, creatinine 1.34, glucose 204, lactic acid 2.2, magnesium 1.7. Liver function tests unremarkable. Troponin less than 0.02. His lipase 349, procalcitonin 0.05. Lactic acid 2.2. His ferritin 362, CRP 104. This morning; sodium 136, potassium 4.6, chloride 105, bicarb 24, BUN 26, creatinine 1.05, glucose 251. Hemoglobin A1c 9.1, ferritin 400, CRP 98.7. Hospital Course: After the patient was admitted to the hospital, he was given IV fluid for volume depletion. His appetite has improved and he was able to eat 2 good meals, 1 last night, 1 this morning. He feels very well and he has no other complaints. I have ordered a CAT scan of the chest without contrast. His chest x-ray did not show any evidence of pneumonia. Depending on CAT scan result, our plan is to discharge him to go home. He has his prescription for Zithromax that he will continue upon discharge. He has taken 2 doses of ivermectin at home, second dose was yesterday. We will send him home with some prednisone and we will have to add another diabetes medication considering his A1c is 9.1. We will add glipizide 2.5 mg daily with breakfast. Our plan is to discharge him to go home today and we will discharge him with prednisone. I will follow up next week on outpatient basis with him. Discharge Diagnoses: 1. Volume depletion. 2. Acute kidney injury, resolved. 3. COVID-19 infection. 4. COVID-19 pneumonia. 5. Hypertension. 6. Type 2 diabetes mellitus, uncontrolled. 7. Hyperlipidemia. 8. Depression. BRAULIO/MODL Voice ID: [id number] Report ID: [id number]
[2020-06-23 13:57] VITALS: BP 129/73; TEMP 97.7
--- NOTE | 2020-06-24 08:22 | EKG ---
Test Date: 2020-06-22 Test Time: 13:24:23 Travel Services Professional: RADHA MEASUREMENT RESULTS: Intervals: Rate: 99 GA: QRSD: 84 QT: 360 QTc: 462 Ophelia: P: GA: QRS: 1 T: 55 INTERPRETIVE STATEMENTS: Accelerated Junctional rhythm Inferior infarct, age undetermined Abnormal ECG No previous ECG available for comparison Electronically Signed On 06-24-20 08:18:06 SEWING MACHINIST by Herson Spears
== END 2020-06-23 14:20 | disposition home or self-care (01) ==
LOC: ER 12:33 → INTOOBSV 15:33 → ERHOLD 15:33 → 4TH 16:17
PROVIDERS: ADMIT Internal Medicine; ATTEND Internal Medicine
DX: U07.1 COVID-19 (principal); J12.82 Pneumonia due to coronavirus disease 2019; R09.02 Hypoxemia; E86.0 Dehydration; N17.9 Acute kidney failure, unspecified; I10 Essential (primary) hypertension; E78.5 Hyperlipidemia, unspecified; E11.9 Type 2 diabetes mellitus without complications; E78.00 Pure hypercholesterolemia, unspecified; F32.9 Major depressive disorder, single episode, unspecified; Z82.49 Family history of ischemic heart disease and other diseases of the circulatory system; Z80.52 Family history of malignant neoplasm of bladder; Z80.49 Family history of malignant neoplasm of other genital organs; Z80.0 Family history of malignant neoplasm of digestive organs; Z80.42 Family history of malignant neoplasm of prostate
CPT/HCPCS: 96361; 93005; 87040 ×2; 85025 ×2; 80048 ×2; 36415; 83735 ×2; 82550; 85610; 82947 ×4; 80076; 83605 ×2; 85730; 83036; 84484; 82553; 82728 ×2; 83690; 84145; 83880; 86140 ×2; 71250; 71045; 94760; 96374; 99285; J3411 ×2; J3475; J1650 ×2; J7030 ×2; J2930 ×4; J1815

== ENCOUNTER → 2021-06-04 | Day surgery (SDC) | payer OTHER ==
--- NOTE | 2021-06-04 11:59 | RAD REPORT ---
EXAM DESCRIPTION: US - Guided FNA Non Breast - 06/04/2021 10:38 am CLINICAL HISTORY: E04.1 COMPARISON: Thyroid Para Parotid Gland dated 01/30/2021 TECHNIQUE: Patient presents for ultrasound-guided FNA of a previously detailed dominant 3 centimeter right thyroid nodule. The ultrasound-guided FNA procedure, risks and alternatives were discussed with the patient in detail . After answering any questions, oral and written consent were obtained. Time-out procedure was perfo rmed. Preliminary imaging again identified the dominant solid nodule in the right thyroid lobe. The right a nterior neck was prepped and draped in the usual sterile fashion. Using sonographic guidance skin and deeper tissues down to the nodule were anesthetized with 1% lidocaine. Under direct sonographic visualization a 25 gauge needle was advanced into the nodule. Multiple to an d fro excursions of the needle tip performed. The FNA procedure was repeated with 4 additional 25 gau ge needle sampling different portions of the solid nodule. All obtained material was given to the [facility] hology for cytology/ histology assessment. At the conclusion of the procedure there was no hematoma in the soft tissues. Patient was in no distr ess or pain. Postprocedure care and precaution instructions were given to the patient. A sterile band age was placed at the skin puncture site. IMPRESSION: Ultrasound-guided FNA was performed of the right lobe 3 centimeter solid nodule.
== END ==
LOC: FNA 10:25
PROVIDERS: ATTEND Internal Medicine
PROC: 0GJK3ZZ Inspection of Thyroid Gland, Percutaneous Approach (ICD-10-PCS; principal; 2021-06-04)
DX: E04.1 Nontoxic single thyroid nodule (principal)
CPT/HCPCS: 88162